=== PATIENT | male | born 1995 | race Caucasian/White ===

== ENCOUNTER 2017-12-16 13:40 | Emergency (ER) | payer SELFPAY ==
[~2017-12-16] VITALS: Ht 172.7 cm; Wt 110.0 kg
[2017-12-16 13:44] VITALS: BP 135/54
== END 2017-12-16 16:16 | disposition home or self-care (01) ==
LOC: ER 14:12
DX: L60.0 Ingrowing nail (principal)
CPT/HCPCS: 99282

== ENCOUNTER 2023-06-01 16:45 | Emergency (ER) | payer MEDICAID, OTHER ==
[~2023-06-01] VITALS: Ht 172.7 cm; Wt 88.0 kg
[2023-06-01 17:00] VITALS: BP 122/86; PULSE 58; RESP 16; TEMP 98.7; O2SAT 99
== END 2023-06-01 18:07 | disposition home or self-care (01) ==
LOC: ER 16:56
DX: S90.212D Contusion of left great toe with damage to nail, subsequent encounter (principal); X58.XXXD Exposure to other specified factors, subsequent encounter; M79.675 Pain in left toe(s)
CPT/HCPCS: 99281